=== PATIENT | male | born 1950 | race Caucasian/White ===

== ENCOUNTER 2018-07-03 13:37 | Emergency (ER) | payer OTHER ==
[~2018-07-03] VITALS: Ht 177.8 cm; Wt 77.1 kg
[~2018-07-03 13:37] MED LIST: CENTRUM SILVER1 EAC4 PO; DILANTIN100 MG PO; FISH OIL 1,001000 M2 PO; LORATIDINE 10 M10 M1 PO; VITAMIN E100 UNIT PO; VITAMINC500 PO; ZYRTEC10 M5 PO
[2018-07-03 14:43] LABS: URINE BILIRUBIN 3+ (Negative); URINE BLOOD TRACE (Negative); URINE CLARITY CLEAR; URINE COLOR YELLOW; URINE GLUCOSE-RANDOM* TRACE (Negative); URINE KETONES 1+ (Negative); URINE LEUKOCYTES-REFLEX NEGATIVE (Negative); URINE PROTEIN (DIPSTICK) 2+ (Negative); URINE UROBILINOGEN >= 8.0 E.U./dl (0.2-1.0)
[2018-07-03 14:45] LABS: HEMATOCRIT 35.2 % (42.0-52.0); HEMOGLOBIN 12.2 gm/dL (14.0-18.0); MCH 35.9 pg (26.0-34.0); MCHC 34.6 g/dL (28.0-37.0); MCV 103.8 fL (80.0-100.0); PLATELET COUNT 117 thou/uL (150-400); RBC 3.39 mil/uL (4.50-6.00); RDW 13.9 % (10.5-14.5); WBC 8.1 thou/uL (4.0-11.0)
[2018-07-03 14:46] LABS: ICTOTEST (BILI CONFIRMATORY) Positive (Negative); URINE NITRITE-REFLEX POSITIVE (Negative)
[2018-07-03 14:52] LABS: BACTERIA-REFLEX 1-9 Few /HPF (None Seen); CRYSTALS None Seen /LPF (None Seen); HYALINE CASTS 0-3 Few /LPF (None Seen); MUCUS >6 Heavy strn/LPF (None Seen); SQUAMOUS 0-3 Few /LPF (0-3); URINE RBC None Seen /HPF (0-2); URINE WBC-REFLEX 0-5 Rare /HPF (0-5)
[2018-07-03 14:52] LABS: CALCIUM 8.5 mg/dL (8.5-10.1); CREATININE 0.6 mg/dL (0.7-1.3); POTASSIUM 3.4 mmol/L (3.5-5.1)
[2018-07-03 15:36] LABS: ABSOLUTE NEUTROPHILS 5.3 thou/uL (1.4-8.2); ANISOCYTOSIS 1+; MACROCYTES 1+
[2018-07-03 16:21] LABS: DIRECT BILIRUBIN 2.7 mg/dL (<0.1-0.3); TOTAL PROTEIN 7.6 g/dL (6.4-8.2)
[2018-07-03] MEDS ORDERED: NORFLEX100 MG PO (16:42)
[2018-07-03] MEDS ORDERED: IBUPROFEN 600600 M1 PO (16:42)
[2018-07-03 16:58] VITALS: BP 145/92
== END 2018-07-03 16:59 | disposition home or self-care (01) ==
LOC: ER 13:37
PROVIDERS: Nurse Practitioner Family
DX: N39.0 Urinary tract infection, site not specified (principal); E87.1 Hypo-osmolality and hyponatremia; R60.0 Localized edema; F10.10 Alcohol abuse, uncomplicated; Y90.6 Blood alcohol level of 120-199 mg/100 ml; E80.7 Disorder of bilirubin metabolism, unspecified; R94.5 Abnormal results of liver function studies; F17.210 Nicotine dependence, cigarettes, uncomplicated; Z85.828 Personal history of other malignant neoplasm of skin

== ENCOUNTER 2018-07-06 19:01 | Inpatient (IN) | payer OTHER ==
[~2018-07-06] VITALS: Ht 177.8 cm; Wt 75.9 kg
[~2018-07-06 19:01] MED LIST changes: +IBUPROFEN 600600 M1 PO; +NORFLEX100 MG PO
[2018-07-06 19:03] VITALS: BP 135/86
[2018-07-06 20:09] LABS: ABSOLUTE NEUTROPHILS 5.1 thou/uL (1.4-8.2); BASOPHILS 1.5 % (0.0-2.0); EOSINOPHILS 1.5 % (0.0-3.0); HEMOGLOBIN 12.6 gm/dL (14.0-18.0); MCH 36.4 pg (26.0-34.0); MCHC 35.2 g/dL (28.0-37.0); MCV 103.5 fL (80.0-100.0); MONOCYTES 11.2 % (1.0-8.0); PLATELET COUNT 119 thou/uL (150-400); POLYS 65.8 % (36.0-66.0); RBC 3.47 mil/uL (4.50-6.00); WBC 7.8 thou/uL (4.0-11.0)
[2018-07-06 20:18] LABS: ANION GAP 11 mmol/L (7-16); BUN 6 mg/dL (7-18); CALCIUM 8.4 mg/dL (8.5-10.1); CHLORIDE 95 mmol/L (98-107); CO2 26 mmol/L (21-32); CREATININE 0.5 mg/dL (0.7-1.3); GLUCOSE 82 mg/dL (74-106); POTASSIUM 4.6 mmol/L (3.5-5.1); SODIUM 132 mmol/L (136-145)
[2018-07-06 20:23] LABS: APTT 32.4 Seconds (24.5-32.8); INR 1.2; PROTIME 12.6 Seconds (9.3-11.4)
[2018-07-06 20:28] LABS: ALBUMIN 2.9 g/dL (3.4-5.0); DIRECT BILIRUBIN 1.4 mg/dL (<0.1-0.3); SGOT 142 U/L (15-37); SGPT 31 U/L (30-65); TOTAL BILIRUBIN 2.7 mg/dL (<0.1-1.0); TOTAL PROTEIN 7.4 g/dL (6.4-8.2); TROPONIN-I <0.06 ng/mL (<0.06)
[2018-07-06 21:26] LABS: URINE BILIRUBIN NEGATIVE (Negative); URINE BLOOD NEGATIVE (Negative); URINE CLARITY CLEAR; URINE COLOR YELLOW; URINE GLUCOSE-RANDOM* NEGATIVE (Negative); URINE KETONES NEGATIVE (Negative); URINE LEUKOCYTES-REFLEX TRACE (Negative); URINE NITRITE-REFLEX NEGATIVE (Negative); URINE PROTEIN (DIPSTICK) NEGATIVE (Negative); URINE SPECIFIC GRAVITY <= 1.005 (1.005-1.035); URINE UROBILINOGEN >= 8.0 E.U./dl (0.2-1.0)
[2018-07-06 23:22] VITALS: BP 144/87
[2018-07-06 23:24] VITALS: BP 130/85; BP 135/81
[2018-07-06 23:51] LABS: AMP/METHAMP Negative (Negative); BARBITURATES Negative (Negative); BENZODIAZEPINES Negative (Negative); COCAINE Negative (Negative); METHADONE Negative (Negative); OPIATES Negative (Negative); PCP Negative (Negative)
[2018-07-07 00:15] VITALS: BP 139/80
[2018-07-07 01:11] LABS: GGTP > 800 U/L (15-85)
[2018-07-07 01:12] LABS: MAGNESIUM 0.9 mg/dL (1.8-2.4)
[2018-07-07 01:38] LABS: FOLIC ACID 31.5 ng/mL (8.6-58.9)
[2018-07-07 04:00] VITALS: BP 130/80
[2018-07-07 07:31] VITALS: BP 131/79
[2018-07-07] MEDS ORDERED: VITAMIN B-1100 M2 PO (09:02)
[2018-07-07] MEDS ORDERED: DILANTIN100 MG PO (09:02)
[2018-07-07] MEDS ORDERED: PRENATAL PO (09:03)
[2018-07-07] MEDS ORDERED: PROPRANOLOL 1010 MG PO (09:09)
--- NOTE | 2018-07-07 09:32 | EKG ---
[address] [place] [address] ELECTROCARDIOGRAM REPORT Name: LYLA HARLEY Claire Room #: 358-P ADM IN M.R.#: [id number] ������������������ Admission: 07/06/18 ������������������ Attend Phys: Deborah Roberts Discharge: ������������������ Date of : 50 Report #: [id number] ����������������������������������������������������������������� [id number] THIS REPORT FOR: //name// [facility] ED Test Date: 2018-07-06 Test Time: 19:27:51 Pat Name: LYLA HARLEY Department: Room: [facility] Gender: M Tanning Solution Maker: JARET : 1950 Requested By: Shiva Barnes Order Number: [id number] MD: Samm Monsalve Measurements Intervals [place] Rate: 92 P: 28 HI: 172 QRS: -8 QRSD: 104 T: 35 QT: 428 QTc: 530 Interpretive Statements Sinus rhythm RSR' in V1 or V2, probably normal variant Prolonged QT interval Compared to ECG 10/14/2017 06:20:57 RSR' in V1 or V2 now present Electronically Signed On 07-07-2018 9:32:02 CDT by Samm Monsalve [email or web address] ��������������������������������������������� <ELECTRONICALLY SIGNED> ���������������������������������������� By: Samm Monsalve MD, [facility] ��������������������������������������������� 07/07/18 0932 1927 26 Samm Monsalve MD, [facility] /EPI
[2018-07-07 10:18] LABS: % SATURATION 62 % (20-39); IRON 98 ug/dL (65-175); TIBC 157 ug/dL (250-450)
[2018-07-07 11:59] VITALS: BP 131/79
[2018-07-07 16:00] VITALS: BP 139/76
[2018-07-07 19:10] VITALS: BP 155/91
[2018-07-07 21:10] LABS: HAV IgM AB (ANTI-HAV IgM) Negative (Negative); HEPATITIS B SURFACE AG Negative (Negative); HEPATITIS C VIRUS AB <0.1 (0.0-0.9)
[2018-07-07 22:06] LABS: IgG 1215 mg/dL (700-1600)
[2018-07-08 03:15] VITALS: BP 145/101
[2018-07-08 06:29] LABS: ALBUMIN 2.7 g/dL (3.4-5.0); CALCIUM 8.2 mg/dL (8.5-10.1); CREATININE 0.5 mg/dL (0.7-1.3); MAGNESIUM 1.2 mg/dL (1.8-2.4); POTASSIUM 3.2 mmol/L (3.5-5.1); TOTAL PROTEIN 6.5 g/dL (6.4-8.2)
[2018-07-08 07:47] VITALS: BP 143/96
[2018-07-08 11:03] VITALS: BP 143/86
[2018-07-08 16:46] VITALS: BP 127/84
[2018-07-08 19:49] VITALS: BP 141/91
[2018-07-09 03:45] VITALS: BP 135/81
[2018-07-09 07:27] VITALS: BP 126/80
[2018-07-09 10:10] LABS: CERULOPLASMIN 30.2 mg/dL (16.0-31.0)
[2018-07-09 10:39] LABS: MAGNESIUM 1.3 mg/dL (1.8-2.4); POTASSIUM 3.5 mmol/L (3.5-5.1)
[2018-07-09 11:00] VITALS: BP 133/85
[2018-07-09 15:34] VITALS: BP 131/83
[2018-07-09 20:00] VITALS: BP 139/87
[2018-07-10 04:00] VITALS: BP 118/74
[2018-07-10 07:13] LABS: ALBUMIN 2.4 g/dL (3.4-5.0); CALCIUM 7.9 mg/dL (8.5-10.1); CREATININE 0.5 mg/dL (0.7-1.3); POTASSIUM 3.8 mmol/L (3.5-5.1); TOTAL BILIRUBIN 3.1 mg/dL (<0.1-1.0)
[2018-07-10 07:25] VITALS: BP 124/74
[2018-07-10 07:30] VITALS: BP 124/74
[2018-07-10 11:30] VITALS: BP 135/77
[2018-07-10 16:00] LABS: CLARITY HAZY; COLOR YELLOW; SOURCE ABDOMINAL; TOTAL VOLUME 60 mL
[2018-07-10 16:14] LABS: BF NUCLEATED CELLS 211; BF RBC 1268
[2018-07-10 17:11] LABS: BF MACROPHAGE 20; BF NEUTROPHILS 32
[2018-07-10 20:16] VITALS: BP 115/73
[2018-07-11 00:10] LABS: ANA INTERPRETATION Negative (Negative)
[2018-07-11 03:50] VITALS: BP 122/70
[2018-07-11 05:44] LABS: INR 1.3
[2018-07-11 07:37] VITALS: BP 118/65
[2018-07-11 08:23] LABS: HEMATOCRIT 37.1 % (42.0-52.0); HEMOGLOBIN 12.8 gm/dL (14.0-18.0); MCH 36.9 pg (26.0-34.0); MCHC 34.5 g/dL (28.0-37.0); MCV 106.8 fL (80.0-100.0); RBC 3.47 mil/uL (4.50-6.00); RDW 14.4 % (10.5-14.5); WBC 7.6 thou/uL (4.0-11.0)
[2018-07-11 11:37] VITALS: BP 105/71
[2018-07-11 12:12] VITALS: BP 128/78
[2018-07-11 13:06] LABS: BODY FLUID ALBUMIN 1.8 g/dL (()); BODY FLUID AMYLASE 22 U/L (()); BODY FLUID GLUCOSE 101 mg/dL (()); BODY FLUID LDH 64 IU/L (()); BODY FLUID PROTEIN 2.2 g/dL (())
[2018-07-11 15:43] VITALS: BP 131/80
[2018-07-11 19:30] VITALS: BP 119/77
[2018-07-12 05:26] VITALS: BP 112/73
[2018-07-12 06:36] LABS: ALBUMIN 2.3 g/dL (3.4-5.0); CALCIUM 8.1 mg/dL (8.5-10.1); CREATININE 0.7 mg/dL (0.7-1.3); TOTAL BILIRUBIN 2.6 mg/dL (<0.1-1.0); TOTAL PROTEIN 5.8 g/dL (6.4-8.2)
[2018-07-12 07:53] VITALS: BP 105/61
[2018-07-12 08:22] LABS: SOURCE ABDOMINAL
[2018-07-12] MEDS ORDERED: LACTULOSE20 GM/30 M PO (10:04)
[2018-07-12] MEDS ORDERED: VITAMIN B-1100 M2 PO (10:04)
[2018-07-12] MEDS ORDERED: XIFAXAN550 MG PO (10:04)
[2018-07-12] MEDS ORDERED: CHLORDIAZEPOXID25 M1 PO (10:04)
[2018-07-12] MEDS ORDERED: DILANTIN100 MG PO (10:04)
[2018-07-12] MEDS ORDERED: ALDACTONE50 MG PO (10:04)
[2018-07-12 11:26] VITALS: BP 112/60
[2018-07-12 16:11] VITALS: BP 118/77
--- NOTE | 2018-07-12 17:06 | PATH ---
[facility] [address] [place] [address] PATHOLOGY RPT PROCEDURE Name: PAUL HARLEY Claire Room #: 358-P [facility] IN M.R.#: [id number] ������������������ Admission: 07/06/18 ������������������ Date of : 50 Discharge: Report #: [id number] Path Case #: [id number] [facility] Accession Number: [id number] . 01 Material submitted: . PART A: colon - POLYP AT DESCENDING COLON. Modifiers: descending PART B: colon - POLYP AT SIGMOID COLON X2. Modifiers: sigmoid . 01 Clinical history: . Cirrhosis Liver . 02 Diagnosis: A. Polyp, descending colon, endoscopic biopsy: - Tubulovilous adenoma. - Negative for high-grade dysplasia. - Cautery present in association with unremarkable mucosa and adenomatous changes (please see comment). . B. Polyp x2, sigmoid colon, endoscopic biopsy: - Tubular adenoma. - Negative for high-grade dysplasia. - Unremarkable mucosa present at cautery. (IUV:[place]; 07/12/2018) QMS/07/12/2018 . 02 Comment: A. Please correlate with endoscopic findings for a complete resection of this polyp. . (IUV:[place]; 07/12/2018) . 02 Electronically signed: . Kamala Santiago MD, Pathologist NPI- [id number] . 01 Gross description: . A. Received in formalin labeled "Paul Harley, polyp at descending colon," is a 0.9 x 0.7 x 0.7 cm polypoid piece of shaffer soft tissue. The margin is inked and the tissue is sectioned perpendicular to the margin and submitted in its entirely in cassette A1 and A2. Additionally received in the same container is a 1.0 x 0.5 x 0.5 cm polypoid piece of shaffer soft tissue. The margin is inked and the specimen is sectioned perpendicular to the margin and entirely submitted in cassette A3 and A4. . B. Received in formalin labeled "Paul Harley, polyp at sigmoid colon x2," are 3 segments of shaffer soft tissue measuring 0.9 x 0.7 x 0.2 cm in aggregate dimensions and ranging from 0.4 to 0.5 [place] [address] PATHOLOGY RPT PROCEDURE Name: PAUL HARLEY A Room #: 358-P [facility] IN M.R.#: [id number] ������������������ Admission: 07/06/18 ������������������ Date of : 50 Discharge: Report #: [id number] Path Case #: [id number] The specimen is submitted entirely in cassette B1. (TSD; 07/11/2018) TOB/TOB . 02 Pathologist provided ICD-10: D12.4, D12.5 . 02 CPT . 820282, 685411 Specimen Comment: A courtesy copy of this report has been sent to Specimen Comment: [phone], , . Specimen Comment: Report sent to ,DR JONES / DR BUTT Performed at: [address], [place], [place] [id number] MD Harvey Boyce MD Phone: [phone] Performed at: [address] [id number] MD Kamala Santiago MD Phone: [phone]
[2018-07-12 19:02] VITALS: BP 119/65
--- NOTE | 2018-07-13 14:06 | PATH ---
[facility] [address] [place] [address] PATHOLOGY RPT PROCEDURE Name: LYLA HARLEY Room #: 358-P [facility] IN M.R.#: [id number] ������������������ Admission: 07/06/18 ������������������ Date of : 50 Discharge: 07/12/18 Report #: [id number] Path Case #: [id number] Note [facility] Accession Number: [id number] TESTS RESULT FLAG UNITS REF RANGE LAB Clinician Provided Cytology Information No. of containers..01 Other (Miscellaneous) Source: ABDOMINAL FLUID DIAGNOSIS: 02 ABDOMINAL FLUID NEGATIVE FOR MALIGNANT CELLS. REACTIVE CELLULAR CHANGES NOTED. Pathologist ICD10: 02 R79.9 Signed out by: Kamala Santiago MD, Pathologist NPI- [id number] Performed by: Chika Hough, Cigar Machine Feeder ([facility]) Gross description: 01 20ML, YELLOW, CLEAR /LCS FLAG LEGEND: L-Low Normal,H-High Normal,LL-Alert Low,HH-Alert High <-Panic Low,>-Panic High,A-Abnormal,AA-Critical Abnormal Performed at: [address] [place] [address] Harvey Boyce MD, [address] [address] Kamala Santiago MD, Specimen Comment: A courtesy copy of this report has been sent to Specimen Comment: [phone], , . Specimen Comment: Report sent to ,DR BUTT / DR JONES Performed at: [address], [place], [place] [id number] MD Harvey Boyce MD Phone: [phone]
--- NOTE | 2018-07-14 14:06 | PATH ---
[facility] [address] [place] [address] PATHOLOGY RPT PROCEDURE Name: LYLA HARLEY Room #: 358-P [facility] IN M..#: [id number] ������������������ Admission: 07/06/18 ������������������ Date of : 50 Discharge: 07/12/18 Report #: [id number] Path Case #: [id number] Note [facility] Accession Number: [id number] TESTS RESULT FLAG UNITS REF RANGE LAB Clinician Provided Cytology Information No. of containers..01 Other (Miscellaneous) Source: BRUSHING DIAGNOSIS: 02 CYTOLOGY BRUSHING TO RULE OUT KANDIS NEGATIVE FOR MALIGNANT CELLS. NO FUNGAL ORGANISMS ARE PRESENT. Pathologist ICD10: 02 E72.20 Signed out by: 02 Kamala Santiago MD, Pathologist NPI- [id number] Performed by: 01 Chika Hough Pressing Machine Tender ([facility]) FLAG LEGEND: L-Low Normal,H-High Normal,LL-Alert Low,HH-Alert High <-Panic Low,>-Panic High,A-Abnormal,AA-Critical Abnormal Performed at: [address] [place] [address] Harvey Boyce MD, [address] [address] Kamala Santiago MD, Specimen Comment: A courtesy copy of this report has been sent to Specimen Comment: [phone]. Specimen Comment: Report sent to ROBERT TEAGUE / DR BUTT Specimen Comment: Report sent to Specimen Comment: A duplicate report has been generated due to demographic updates. Performed at: [address], [place], [place] [id number] MD Harvey Boyce MD Phone: [phone]
== END 2018-07-12 22:35 | DRG 433 ==
LOC: ER 19:01 → EROBS 21:15 → 3W 21:15
PROVIDERS: Anesthesiology; Emergency Medicine; Internal Medicine Gastroenterology; Nurse Practitioner; Nurse Practitioner Acute Care; ADMIT Hospitalist
DX: K70.31 Alcoholic cirrhosis of liver with ascites (principal); K76.6 Portal hypertension; F10.239 Alcohol dependence with withdrawal, unspecified; E46 Unspecified protein-calorie malnutrition; I85.00 Esophageal varices without bleeding; K70.11 Alcoholic hepatitis with ascites; G31.9 Degenerative disease of nervous system, unspecified; E83.42 Hypomagnesemia; G40.909 Epilepsy, unspecified, not intractable, without status epilepticus; G72.9 Myopathy, unspecified; Y90.9 Presence of alcohol in blood, level not specified; K31.89 Other diseases of stomach and duodenum; Z68.24 Body mass index [BMI] 24.0-24.9, adult; Z87.891 Personal history of nicotine dependence; Z82.49 Family history of ischemic heart disease and other diseases of the circulatory system; Z85.828 Personal history of other malignant neoplasm of skin
CPT/HCPCS: 10879; 62110; 62900; 70005

== ENCOUNTER 2018-07-12 16:07 | Inpatient (IN) | payer OTHER ==
[~2018-07-12] VITALS: Ht 177.8 cm; Wt 73.9 kg
[~2018-07-12 16:07] MED LIST changes: +ALDACTONE50 MG PO; +CHLORDIAZEPOXID25 M1 PO; +LACTULOSE20 GM/30 M PO; +PRENATAL PO; +PROPRANOLOL 1010 MG PO; +VITAMIN B-1100 M2 PO; +XIFAXAN550 MG PO
[2018-07-12 22:35] VITALS: BP 137/87
--- NOTE | 2018-07-13 01:15 | NUR ---
PT ADMITTED TO THE [address] [place] [address] LATE THIS EVENING FOR SEVERE PROXIMAL MYOPATHY AND ACUTE ALCOHOLIC ENCEPHALOPATHY. VSS. SAT WNL ON RA. ADMIT HX AND ASSESSMENT COMPLETED. PT CONFUSED SO DID NOT HAVE HIM SIGN CONSENTS. INC OF DARK YELLOW URINE. VERY WEAK. 2 ASST WITH STANDING. TURNS SELF WELL IN THE BED. IMPULSIVE. ASCITES. SLEEPING ON AND OFF. WILL CONTINUE TO MONITOR FREQUENTLY.
[2018-07-13 05:28] LABS: HEMATOCRIT 38.6 % (42.0-52.0); HEMOGLOBIN 13.2 gm/dL (14.0-18.0); MCH 36.2 pg (26.0-34.0); MCHC 34.3 g/dL (28.0-37.0); MCV 105.4 fL (80.0-100.0); RBC 3.66 mil/uL (4.50-6.00); RDW 14.3 % (10.5-14.5); WBC 7.1 thou/uL (4.0-11.0)
[2018-07-13 05:40] LABS: CALCIUM 8.7 mg/dL (8.5-10.1); CREATININE 0.7 mg/dL (0.7-1.3); POTASSIUM 3.8 mmol/L (3.5-5.1)
[2018-07-13 09:09] VITALS: BP 102/70
--- NOTE | 2018-07-13 12:20 | NUR ---
chart review. pt up getting ready for lunch, sitting with him for lunch. intro to cm, dcp and team meeting. per chart pt lives with - employee with [employer]. pt independent, hx ethol abuse. resources provided in past for [facility]. no dme. had [facility] in past per chart. will cont following as needed for dc needs.
--- NOTE | 2018-07-13 13:28 | NUR ---
Nutrition: Pt admitted to rehab unit with severe proximal myopathy. Consulted due to ascities, ETOH. Hx cirrhosis, portal HTN, varices. Spoke with pt and . Per , he eats very well, 100% of breakfast consumed. Prior stable weights from 10/2017. Most recent weight down 4# possibly due to recent paracentesis. Follow trends. Obtained food preferences. Trial ensure enlive daily for additional protein/nutrition. On , thiamine supplementation and lactulose for elevated NH3 levels. Consider pt low risk at present.
--- NOTE | 2018-07-13 14:59 | NUR ---
ASSUMED CARES AT 0700. PT ORIENTED TO PERSON AND SITUATION SOMETIMES, CONFUSED AND VERY IMPULSIVE. PT SITTING ON THE RECLINER BETWEEN THERAPIES AND TRIED TO GET UP MULTIPLE TIMES, REORIENTED EACH TIME BUT QUICKLY FORGETS. VITALS REMAIN STABLE. PT REMAINS ON SEIZURE PRECAUTIONS. ABDOMEN SOFT AND DISTENDED, BS ACTIVE*4, LAST BM 07/11. DRESSING ON RIGHT UPPER ABDOMEN REMAINS INTACT AND DRY. PT CONTINUES TO HAVE BLE EDEMA. FREQUENT VISUAL CHECKS, ROOM BY NURSES' STATION. FALL PRECAUTIONS IN PLACE
[2018-07-13 20:04] VITALS: BP 125/69
--- NOTE | 2018-07-14 01:35 | NUR ---
PT ALERT AND CONFUSED. RESTLESS AT TIMES. INCONT OF URINE. DRESSING TO RIGHT ABDOMEN C/D/I. PT DENIES PAIN OR DISCOMFORT. BED ALARM ON FOR SAFETY. PT APPEARS TO BE SLEEPING ON HOURLY ROUNDS. PT EASILY VISIBLE FROM NURSES STATION.
[2018-07-14 06:43] LABS: ALBUMIN 2.5 g/dL (3.4-5.0); CALCIUM 8.9 mg/dL (8.5-10.1); CREATININE 0.6 mg/dL (0.7-1.3); POTASSIUM 3.8 mmol/L (3.5-5.1); TOTAL BILIRUBIN 2.9 mg/dL (<0.1-1.0); TOTAL PROTEIN 6.8 g/dL (6.4-8.2)
[2018-07-14 08:15] VITALS: BP 100/70
[2018-07-14 20:06] VITALS: BP 95/57
--- NOTE | 2018-07-14 20:17 | NUR ---
ASSUMED CARE OF PT AT 0715. PT IS ALERT AND ORIENTED TO PERSON, AND HAS PERIODS OF AGITAITON AND IMULSIVITY. BLOOD PRESSURE LOW, PT ASYMPTOMATIC AND WHEN RECHECKED LATER IN SHIFT HAD ELEVATED. PT IS INCONTINENT OF BOWEL AND BLADDER. PT TAKES MEDICAITONS 1 AT A TIME WITH THIN LIQUIDS. PT TRANSFERS AND AMBULATES WITH 1-2 PERSON MAX ASSIST TO W/C. PT REPORTED NO PAIN AND PARTICIPATED IN THERAPIES. BOWEL SOUNDS ARE ACTIVE IN ALL QUADRANTS WITH SOME DISTENTION NOTED IN THE LOWER QUADRANTS. FALL AND SEIZURE PRECAUTIONS IN PLACE AND NURSING WILL CONTINUE TO MONITOR.
[2018-07-14 22:30] VITALS: BP 119/63
--- NOTE | 2018-07-15 01:15 | NUR ---
PT ASSESSMENT COMPLETED AND VSS. MEDS GIVEN ORDERED AND WELL TOLERATED. FALL PRECAUTIONS IN PLACE. PT REMAINS VERY CONFUSED. PT AGITATED WHEN TRYING TO REPOSITION HIM. PROVIDED MUCH EMOTIONAL SUPPORT. INC OF URINE. SEIZURE PRECAUTIONS PADS IN PLACE. 0 SEIZURES NOTED. SLEEPING WELL. WILL CONTINUE TO MONITOR FREQUENTLY.
[2018-07-15 09:30] VITALS: BP 111/67
--- NOTE | 2018-07-15 12:31 | NUR ---
ASSUMED CARES AT 0700. PT IN BED ASLEEP. ORIENTED TO PERSON ONLY, CONFUSED AND IMPULSIVE. VITALS REMAIN STABLE. AMMONIUM LAB DRAWN -35, HOSPITALIST NOTIFIED. ABDOMEN FIRM AND DISTENDED, LAST BM 07/11, DUCOLAX SUPP ADMINISTERED AND PT HAD 1LG BM. ABDOMEN REMAINS DISTENDED, BLE EDEMA. PT REMAINS ON ANTI-SEIZURE PRECAUTIONS. UP WITH 2 MAX ASSIST TRANSFERS, AMBULATED SHORT DISTANCES WITH PT THIS AM AND TOLERATED WELL. Q1H VISUAL CHECKS. CALL LIGHT WITHIN REACH. FALL PRECAUTIONS IN PLACE
[2018-07-15 21:00] VITALS: BP 130/77
--- NOTE | 2018-07-16 05:11 | NUR ---
assumed care at approx 1900 evening 07/15. pt lying in bed at change of shift sleeping. pads in place in bed for seizure precautions. pt woke for hs meds and took with water well. pt incontinent of urine requiring assistance with changing brief. pt confused and forgetful needing redirectin at times. pt now back to sleep appears to be sleeping soundly. bed alarm on and call light in reach. will continue to monitor.
[2018-07-16 07:50] VITALS: BP 117/66
--- NOTE | 2018-07-16 12:30 | NUR ---
ASSUMED CARE OF PT AT 0715. PT IS ALERT AND ORIENTED TO PERSON AND PLACE, VITAL SIGNS ARE STABLE. PT DENIES PAIN AND PARTICIPATED WITH SCHEDULED THERAPIES. PT TAKES MEDICAITONS WHOLE WITH THIN LIQUIDS. TRANSFERS WITH 1 PERSON ASSISTANCE WITH GAIT BELT AND WALKER TO PIVOT TO W/C. SEIZURE PRECAUTIONS IN PLACE FOR HX OF SEIZURES. FALL PRECAUTIONS IN PLACE AND NURSING WILL CONTINUE TO MONITOR.
[2018-07-16 19:30] VITALS: BP 117/62
[2018-07-16 20:15] VITALS: BP 114/72
[2018-07-16 20:16] VITALS: BP 114/72
--- NOTE | 2018-07-16 22:48 | NUR ---
AT 1919 CHAIR ALARM GOING OFF FROM PT'S ROOM. MACHINE CLOTH EXAMINER JIMBO RESPONDED AND FOUND PT ON HIS KNEES IN FRONT OF HIS RECLINER. PT CONFUSED. DENIES PAIN OR DISCOMFORT. NO APPARENT INJURY. KYE, GLYCERIN SUPERVISOR NOTIFIED AT 1926. Jay Jay FELDER NP NOTIFIED AT 1936. DR PEÑALOZA NOTIFIED AT 1940 WITH ORDERS RECEIVED. PT'S LEA NOTIFIED AT 1958. PT ASSISTED TO W/C AND THEN TO BED AFTER FALL WITH 3 PERSON ASSIST. ASSESSMENT COMPLETED. LEFT EYE PUPIL LARGER THAN RIGHT. BOTH RESPOND BRISKLY TO LIGHT. HEPATOLOGIST EQUAL. CT HEAD DONE AT 1999 PER ORDERS. PT NOW RESTING IN BED. BED ALARM ON FOR SAFETY. PT CHECKED ON MORE FREQUENTLY THAN HOURLY ROUNDS. Q2H NEURO CHECKS ORDERED.
[2018-07-17 07:45] VITALS: BP 102/57
[2018-07-17 20:01] VITALS: BP 113/73
--- NOTE | 2018-07-17 20:17 | NUR ---
ASSUMED CARE OF PT AT 0715. PT IS A&OX2-3 WITH PERIODS OF CONFUSION, DISORIENTATION, AND IMPULSIVITY, VITAL SIGNS ARE STABLE. PT MADE NO REPORTS OF PAIN AND PARTICIPATED IN SCHEDULED THERAPIES. PT TAKES MEDICATIONS WHOLE WITH THIN LIQUIDS. TRANSFERS WITH 1 PERSON MOD ASSISTANCE TO W/C WITH WALKER AND GAIT BELT. AT APPROXIMATELY 1600 PT BEGAN TO BECOME INCREASINGLY CONFUSED AND REPORTED THAT HE WAS IN HIS HOME AND THAT HIS WAS NOT SUPPOSED TO LEAVE THE HOUSE WITHOUT TELLING HIM BECAUSE SHE NEEDED TO GIVE HIM HIS MEDICAITONS AT THAT MOMENT. CAME TO UNIT FOLLOWING DINNER AND PT INSISTED THAT HE NEEDED TO GO HOME WITH HER BECAUSE THE "DOCTOR'S OFFICE (UNIT)" WAS CLOSING AND THAT SHE NEEDED TO TAKE "THOSE 14 LITTLE WHITE PILLS". PT CONTINUED TO BECOME AGITATED AND REQUIRING FREQUENT REORIENTATION AND REDIRECTION TO AVOID ATTEMPTS TO GET OUT OF W/C AFTER LEFT UNIT AT APPROXIMATELY 1630. AIDE ASKED TO SIT WITH PT UNTIL HE WAS WILLING TO GET INTO BED HE HAD REFUSED TO GET INTO BED EARLIER BECAUES HE SAID IT WAS TOO EARLY. PT IS ON SEIZURE PRECAUTIONS DUE TO HX OF SEIZURE. FALL PRECAUTIONS IN PLACE AND NURSING WILL CONTINUE TO MONITOR.
--- NOTE | 2018-07-18 02:19 | NUR ---
assumed care at approx 1900 evening 07/17. pt sitting up in recliner at change of shift. pt stating he wants to go home and leave. pt able to be redirected however pt remained impulsive. sitter at bedside assisting with pt not trying to get up. pt max assist up to w/c and into bathroom to void. pt did take all of his hs meds with no problem. pt appears to be sleeping soundly with sitter at bedside. fall precautions in place. will continue to monitor.
[2018-07-18 05:52] VITALS: BP 108/64
[2018-07-18 06:15] LABS: INR 1.4; PROTIME 14.5 Seconds (9.3-11.4)
[2018-07-18 06:18] LABS: ALBUMIN 2.4 g/dL (3.4-5.0); CALCIUM 8.6 mg/dL (8.5-10.1); CREATININE 0.6 mg/dL (0.7-1.3); TOTAL BILIRUBIN 2.5 mg/dL (<0.1-1.0); TOTAL PROTEIN 6.9 g/dL (6.4-8.2)
--- NOTE | 2018-07-18 06:24 | HC ---
[facility] [place] [address] CONSULTATION Name: LYLA HARLEY Room #: 513-P ADM IN M.R.#: [id number] Admission: 07/12/18 ������������������ Attend Phys: Hudson Alcaraz MD Discharge: ������������������ Date of : 50 Report #: [id number] THIS REPORT FOR: //name// CC: Hudson Bai DATE OF SERVICE: 07/16/2018 NEUROBEHAVIORAL STATUS EXAMINATION ATTENDING PHYSICIAN: Hudson Alcaraz MD. CERTIFIED CONTROL SYSTEMS TECHNICIAN: Juan Peters, PhD CLINICAL PRESENTATION: The patient is a 67-year-old male admitted to the rehabilitation unit for comprehensive inpatient rehabilitation program. He was initially admitted to the hospital on 07/06/2018 with weakness of the upper and lower extremities, recent fall and trouble with balance. He has history that includes a grand mal seizure approximately 1 week prior to this recent hospitalization. Additionally, his history includes severe alcohol abuse. Abdominal ultrasound revealed cirrhosis with ascites and paracentesis on admission. During his initial hospitalization he underwent severe alcohol withdrawal that included delirium tremens. 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 A complete description of his medical condition and history can be found in his medical records. Neuropsychological consultation was requested to provide assistance in the assessment of cognitive and emotional status and to provide recommendations and services. Prior to this most recent hospitalization, he was living with the assistance of his in their home. The patient is the oldest of 5 siblings. This is his third marriage. He has two children, of whom he is estranged. The patient is a high school graduate. 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 He has not worked for the past 2 years. 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 Additionally, she states that his behavior has deteriorated considerably with an increase in alcohol use and decreased activity. She stated that he had discontinued his seizure medicine during this 2-year period of deterioration since he lost his job. [facility] [address] [place] [address] CONSULTATION Name: LYLA HARLEY Room #: 513-P [facility] IN .R.#: [id number] Admission: 07/12/18 ������������������ Attend Phys: Hudson Alcaraz MD Discharge: ������������������ Date of : 50 Report #: [id number] TECHNIQUES UTILIZED: Clinical interview, review of medical records, staff consultation and behavioral observation, mini mental status exam 2 standard version, clock drawing, verbal fluency assessment (letter and category) and family interview -- . EXAMINATION FINDINGS: The patient was cooperative with the assessment. He was alert, but had diminished social pragmatics. For instance, he maintained a phone conversation upon my entering the room and needing direction in order to end the phone call. He was not able to indicate the reason for his hospitalization. Although he states that he has had trouble with walking and balance and had multiple falls. He acknowledges daily alcohol use, but minimizes the extent of his consumption. His reports him drinking approximately half a bottle of vodka on a daily basis. He reports having 3-4 glasses of vodka daily. He does not report auditory or visual hallucinations and denies feelings of depression or anxiety. However, he reports frustration being in the hospital and wanting to go home. He is lacking insight into the severity of his deficits and does not report problems with cognition, sleep or appetite. His stated that she is not wanting him to return home in his current state. His reports a decline in cognition that has about a 3-4 year duration. 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 His is frustrated with the extent of his personal neglect and alcohol abuse. His performance on the MMSE 2 brief version is extremely low with a raw score of 10 and the T score of 12 and percentile rank of less than 1. He was 3/3 for initial registration, 4/5 for orientation to time, 2/[address] and 1/3 for immediate recall of 3 items after a brief time delay and distraction. His performance on the MMSE 2 standard version was extremely low with a raw score of 18, T score of 14, percentile rank of less than 1. He was 1/5 for serial sevens, 2/2 for naming, 1/1 for repetition, 3/3 for auditory comprehension. He could read and follow single command. The patient was unable to write a sentence or accurately copy a simple geometric design. The patient was unable to draw a clock, correctly place the numbers or set the hands at a specific time. Letter fluency was extremely low with a raw score of 9, T score of 24 and percentile rank of less than 1. Category fluency was extremely low with a raw score of 22, T score 28 and percentile rank of 1. Overall, total fluency was extremely low with a raw score of 31, T score of 20, percentile rank of less [facility] [address] [place] [address] CONSULTATION Name: LYLA HARLEY Room #: 513-P [facility] IN [facility].#: [id number] Admission: 07/12/18 ������������������ Attend Phys: Hudson Alcaraz MD Discharge: ������������������ Date of : 50 Report #: [id number] than 1. The patient is presenting with a severe impairment in cognitive status at this time. Variability in neurocognitive functioning may be subsequent to continued recovery from delirium tremens with intermittent delirium. Deficits are with immediate memory, attention/concentration, visual spatial construction and executive functioning. DIAGNOSTIC IMPRESSION: Delirium -- mixed level of activity -- acute. 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 Unspecified depressive disorder. RECOMMENDATIONS: The patient will require assistance in the management of medication, finances and nutrition. Supervision will be necessary for him to maintain safety. He has discontinued driving, this should continue to be avoided. Treatment program for alcohol/substance abuse is indicated. A followup neuropsychological assessment approximately 6 weeks post-discharge will assist in establishing a more consistent level of cognitive functioning. Following discharge, a workup for neurodegenerative disorder is indicated necessary. He will require assistance in management of his seizure medication. Thank you very much for allowing me to provide the consultation on this patient. ��������������������������������������������� <ELECTRONICALLY SIGNED> ���������������������������������������� By: Juan Peters, PhD ��������������������������������������������� 07/18/18 0624 1554 45 Juan Peters, PhD /nt
[2018-07-18 08:00] VITALS: BP 113/74
--- NOTE | 2018-07-18 11:47 | NUR ---
ASSUMED CARE AT 0700. PATIENT IS ALERT AND ORIENTED TO PERSON AND PLACE. PATIENT IS FORGETFUL AND IMPULSIVE. PATIENT HAS 1:1 SITTER AT THIS TIME. PATIENT STATES "HE WANTS TO LEAVE. " LUNGS ARE CLEAR. ABD IS SOFT WITH SOME ASCITES. PATIENT IS JAUNDICED. ABD IS SOFT WITH BSX4. UP TO THE BATHROOM TO VOID TRE COLORED URINE. PATIENT IS MAX ASSIST 2 THIS A.M. FOR TRANSFERS. FALL AND SAFETY PROTOCOLS IN PLACE. DENIES ANY PAIN AT THIS TIME. CONTINUES TO PROGESS SLOWLY TOWARDS D/C GOALS. WILL CONTINUE TO MONITER.
--- NOTE | 2018-07-18 13:52 | NUR ---
team meeting, recommendation: pt had sitter since last night impulsive. seizure precaution. been working with therapy, using [facility]. consult for dr rusty griffith, consideration of possible re[facility]-pysch inpt when ready for dc as mobility improves. re-team
[2018-07-18 20:05] VITALS: BP 106/57
[2018-07-18 21:40] VITALS: BP 118/62
--- NOTE | 2018-07-19 05:03 | NUR ---
ASSUMED CARE FOR PT.@1900 PT ASLEEP IN BED AND HAS A SITTER AT BEDSIDE. ASSESSMENT STARTED PT ALERT TO SELF AND SITUATION. HS MEDS GIVEN AND PT NALLELY IT WELL. LUNGS CLEAR. PT AWKE AT MIDNIGHT SITTING ON BEDSIDE STATING WANTS TO GO HOME TO SEE , THIS NURSE REDUCATED PT AND ENCOURAGED HIM TO STAY IN BED. PT REPOSITONED IN BED. ASSISTX2, FALL PREC IN PLACE AND BED ALARM ON. HOURLY ROUND DONE AND PT SLEPT THROUGH THE NIGHT. WILL CONTINUE TO MONITOR
[2018-07-19 07:30] VITALS: BP 123/67
--- NOTE | 2018-07-19 07:59 | NUR ---
ASSUMED CARE AT 0700. PATIENT IS ALERT AND ORIENTEDX3. PATIENT AGUILAR'S, SINK MAKER ARE EQUAL. LUNGS ARE CLEAR. ABD IS SOFT WITH BSX4. NO C/O ABD DISCOMFORT. IN BED WITH SR UP X4 DR. LEYVA. DR. PIERCE CONSULTED FOR MANAGEMENT. FALL AND SAFETY PROTOCOLS IN PLACE. DENIES ANY PAIN. CONTINUES TO PROGRESS TOWARDS D/C GOALS. WILL CONTINUE TO MONITER.
--- NOTE | 2018-07-19 15:12 | NUR ---
Patient participated in community reintegration on 07/19/18 with PHYSICAL THERAPY. Refer to documentation by PT. VALENTINE
[2018-07-19 19:37] VITALS: BP 124/63
--- NOTE | 2018-07-20 01:08 | NUR ---
PT ASSESSMENT COMPLETED AND VSS. MEDS GIVEN ORDERED AND WELL TOLERATED. FALL PRECAUTIONS IN PLACE. PT VERY IMPULSIVE AND CLIMBING OUT OF BED FREQUENTLY DURING THE NIGHT. VERY CONFUSED AT TIMES. PT DOES NOT ALWAYS REMEMBER THAT HE IS AT THE HOSPITAL. HE THINKS STAFF ARE BREAKING INTO HIS APARTMENT. HE SAID THAT HE WAS IN HIS APARTMENT. SEIZURE PRECAUTION PADS IN PLACE. 0 SEIZURES NOTED. LOOSE BM X 3 AT HS. UP TO BSC WITH 2 ASST. VERY WEAK. SLEEPING ON AND OFF. WILL CONTINUE TO MONITOR FREQUENTLY.
--- NOTE | 2018-07-20 09:07 | NUR ---
Patient participated in community reintegration on 07/19/18 with Physical Therapy. Refer to documentation by Pearl
--- NOTE | 2018-07-20 12:49 | NUR ---
Nutrition: pt seen per followup. Hx ascities, ETOH, cirrhosis, portal HTN, varices. S/P paracentesis. Esophageal varices per EGD. Malnutrition doc per physician-defer dx. No new weight since 07/12. Intake is variable per records 50-100% of meals. Previously had reported pt with good appetite. Continues on thiamine, vitamin and lactulose. [id number]. Remains mildly confused. Continue ensure daily and monitor nutritional parameters. REC obtain new weight. Follow weekly.
[2018-07-20 19:12] VITALS: BP 128/64
--- NOTE | 2018-07-20 19:25 | NUR ---
ASSUMED CARE OF PT AT 0730. PT IS ALERT AND ORIENTED TO PERSON AND FREQUENTLY REQUIRES REORIENTATION, IS IMPULSIVE AND REQUIRES 15 MINUTE VISUAL CHECKS BY NURSING. PT HAS BEEN SEEN BY NURSING TURNING OFF HIS CHAIR ALARM AND DESPITE EDUCATION PT DOES NOT USE CALL LIGHT WHEN IN NEED OF ASSISTANCE. PT SEEN TRYING TO CRAWL OVER BED RAILING ON MULTIPLE OCCASSIONS AND ARE IN PLACE FOR SEIZURE PRECAUTIONS. PT INCONTINENT OF URINE AT LEAST 3 TIMES THIS SHIFT AND REQUIRED 1-2 PERSON ASSISTANCE WITH GETTING CLEANED AFTER INCONTINENT EPISODES. PT TAKES HIS MEDICATIONS WHOLE WITH THIN LIQUIDS. SEIZURE AND FALL PRECAUTIONS IN PLACE AND NURSING WILL CONTINUE TO MONITOR.
--- NOTE | 2018-07-21 01:31 | NUR ---
PT ASSESSMENT COMPLETED AND VSS. MEDS GIVEN ORDERED AND WELL TOLERATED. FALL PRECAUTIONS IN PLACE. PT VERY CONFUSED AND AGITATED THIS EVENING. PT VERY IMPULSIVE AND TRYING TO GET UP CONSTANTLY. THIS RN WAS IN PT ROOM MOST OF THE EARLY EVENING TO PREVENT PT FROM FALLING. PRN MEDICATION HELPFUL AFTER SOME TIME. PROVIDED MUCH EMOTIONAL SUPPORT. SEIZURE PRECAUTIONS IN PLACE. 0 SEIZURES NOTED. SLEEPING AT THIS TIME. WILL CONTINUE TO MONITOR FREQUENTLY.
[2018-07-21 04:27] LABS: HEMATOCRIT 33.2 % (42.0-52.0); HEMOGLOBIN 11.5 gm/dL (14.0-18.0); MCH 36.2 pg (26.0-34.0); MCHC 34.6 g/dL (28.0-37.0); MCV 104.8 fL (80.0-100.0); PLATELET COUNT 117 thou/uL (150-400); RBC 3.17 mil/uL (4.50-6.00); RDW 13.3 % (10.5-14.5); WBC 7.9 thou/uL (4.0-11.0)
[2018-07-21 04:42] LABS: CALCIUM 8.7 mg/dL (8.5-10.1); CREATININE 0.7 mg/dL (0.7-1.3); MAGNESIUM 1.3 mg/dL (1.8-2.4); POTASSIUM 4.1 mmol/L (3.5-5.1)
[2018-07-21 06:27] LABS: ABSOLUTE NEUTROPHILS 5.5 thou/uL (1.4-8.2); PLATELET ESTIMATE DECREASED
[2018-07-21 06:28] LABS: ANISOCYTOSIS 1+; POIKILOCYTOSIS 1+
--- NOTE | 2018-07-21 11:05 | NUR ---
ASSUMED CARE AT 0700. PATIENT IS ALERT AND ORIENTEDX3,BUT FORGETFUL AND BEGINS HAVING CONFUSTION IN THE AFTERNOONS. PATIENT AGUILAR', RESEARCH ANTHROPOLOGIST ARE EQUAL. PATIENT REMAINS ON SEIZURE PRECAUTIONS. LUNGS ARE CLEAR. ABD IS SOFT WITH BSX4. UP TO THE BATHROOM WITH ASSIST OF 1 STAFF, GAIT BELT AND WALKER. UP TO THE DINING ROOM FOR MEALS. HERE FOR BREAKFAST. FALL AND SAFETY PROTOCOLS IN PLACE. DENIES PAIN AT THIS TIME. NO SEIZURES NOTED AT THIS TIME. CONTINUES TO PROGRESS SLOWLY TOWARDS D/C GOALS. WILL CONTINUE TO MONITER.
[2018-07-21 20:02] VITALS: BP 105/65
--- NOTE | 2018-07-22 05:38 | NUR ---
ANGRY LAST EVENING THAT FAMILY LEFT BUT DID NOT TAKE HIM WITH THEM. AGREED TO LIE DOWN IN BED NOT LONG BEFORE VISITED BY AND HIS BROTHERS FROM [place]. INCONTINENT OF URINE, DECLINED MIRALAX DUE TO LARGE BM 07/21 AFTERNOON. HAS SLEPT WELL OVERNIGHT
[2018-07-22 08:45] VITALS: BP 102/59
--- NOTE | 2018-07-22 11:42 | NUR ---
ASSUMED CARE AT APPROX 0715. PATIENT A/O X1. FORGETFUL, IMPULSIVE. UP X1 MOD-MAX ASSIST THIS DATE FOR TRANSFERS/STANDING TO TOILET. PATIENT'S FAMILY AT BEDSIDE THIS AM. PATIENT PROPELLS SELF AROUND UNIT IN WC, WC BELT AND GAIT BELT IN PLACE, ROUNDED ON MORE FREQUENTLY THAN HOURLY ROUNDS AND VISIBLE FROM NURSES STATION. DOORS TO UNIT REMAIN CLOSED WHEN PATIENT IS UP IN WC. OUT TO TABLES FOR MEALS. BRIEFS MONITORED FOR INCONTINENCE, PATIENT OFFERED URINAL PERIODICALLY TO ASSIST WITH CONTINENCE. FALL PRECAUTIONS IN PLACE. WILL CONTINUE TO MONITOR.
[2018-07-22 19:30] VITALS: BP 109/62
[2018-07-23 01:26] VITALS: BP 109/62
--- NOTE | 2018-07-23 04:19 | NUR ---
PT UP IN WC EARLY IN SHIFT. ATTEMPTED TO USE RESTROOM W/O SUCCESS. ESCORTED TO BED AND SETTLED. TURNED Q2H THROUGH THE NIGHT. INCONTINENT X2 WHILE SLEEPING. LINEN CHANGED AND PT CLEANED. SOME CONFUSION NOTED, BUT COOPERATIVE WITH TREATMENT. TOOK HS MEDS PRESCRIBED. SLEPT WELL THROUGH THE NIGHT.
[2018-07-23 08:20] VITALS: BP 106/75
--- NOTE | 2018-07-23 11:27 | NUR ---
ASSUMED CARE OF PT AT 0715. PT IS A&OX1-2 CONFUSED AND IMPULSIVE AND HAS PERIODIC REPORTS SEEING INDIVIDUALS OR OBJECTS THAT ARE NOT PRESENT. PT DOES NOT USE CALL LIGHT AND FREQUENTLY ATTEMPTS TO SELF TRANSFER AND AMBULATE. PT AND FAMILY ON THE UNIT WITH PT. FALL AND SEIZURE PRECAUTIONS IN PLACE AND NURSING WILL CONTINUE TO MONITOR.
[2018-07-23 19:28] VITALS: BP 119/66
--- NOTE | 2018-07-23 23:29 | NUR ---
PT VERY CONFUSED AND IMPULSIVE. VSS. MEDS GIVEN ORDERED. 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 THAT HE WAS BEING TESTED TO SEE IF HE WOULD GET THE JOB. HE SAID HE IS ANGRY ABOUT BEING ASKED TO WORK HERE. ATTEMPED TO REORIENT PT. PROVIDED MUCH EMOTIONAL SUPPORT. PRN AGITATION MEDICATION HELPFUL. SLEEPING AT THIS TIME. WILL CONTINUE TO MONITOR FREQUENTLY.
[2018-07-24 08:15] VITALS: BP 107/67
--- NOTE | 2018-07-24 12:20 | NUR ---
cm notified by bedside nurse that pt had question rt dcp, and placement. cm spoke with olene " the way he is, he not going to be able to go home. need to know if he is going to be like this medically, and for cognitively. "/quinton. cm called and spoke with her, education on snf, ana, outpt ethol ( [facility]) support. snf and custodial/il list left for to look at " he cant not afford private pay, so not option and just need to know what team is saying"/. re-education on team meeting on tuesday and will notified pt and family of recommendation by wednesdays. "thanks, just confused"/. will cont following as needed for dc needs.
--- NOTE | 2018-07-24 15:26 | PLAN ---
[facility] [place] [address] REHAB UNIT PLAN OF CARE Name: LYLA HARLEY Room #: 513-P ADM IN M.R.#: [id number] Admission: 07/12/18 ������������������ Attend Phys: Hudson Alcaraz MD Discharge: ������������������ Date of : 50 Report #: [id number] THIS REPORT FOR: //name// CC: Hudson Bai DATE OF SERVICE: 07/14/2018 PROGRESS NOTE/OVERALL PLAN OF CARE SUBJECTIVE: The patient was seen back in followup. He was in no distress. Temperature 97.5, pulse 67, respirations 17, blood pressure 125/69. We have been working with him in therapies with transfers, max assist; gait, max assist 7 feet in the parallel bars. In occupational therapy, lower body dressing is dependent. In speech therapy, he has moderate memory and cognitive deficits. He is in bed right across from the nurse's station, so we can keep a close eye on him on the alejandra. 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 2. Alcoholic encephalopathy with withdrawal. 3. Cirrhosis with ascites. 4. Status post paracentesis. 5. Esophageal varices with portal hypertensive gastropathy. 6. Tobacco abuse. PLAN: Note that there is consideration for the patient to be evaluated for possible liver transplant at or at [facility] per GI note. The current plan for a rehab perspective is the overall plan of care, which is based on the preadmission screen, post-admission physician evaluation and information garnered from therapy assessments. 1. Estimated length of stay is probably at least 2 weeks and likely longer depending upon how he does. 2. Medical prognosis is reasonably good from a rehabilitation perspective. 3. Anticipated interventions includes the interdisciplinary acute inpatient rehabilitation program. 4. Anticipated functional outcomes would be for the patient to become modified independent with transfers, mobility, ADLs, had a walker level and to improve as far as cognition. 5. Discharge destination would be back home with his . 6. Expected therapy by discipline includes PT, OT and speech 1 hour per day [address] [address] REHAB UNIT PLAN OF CARE Name: LYLA HARLEY Claire Room #: 513-P [facility] IN ..#: [id number] Admission: 07/12/18 ������������������ Attend Phys: Hudson Alcaraz MD Discharge: ������������������ Date of : 50 Report #: [id number] each five days a week throughout the duration of the acute inpatient rehabilitation stay. ��������������������������������������������� <ELECTRONICALLY SIGNED> ���������������������������������������� By: Hudson Alcaraz MD ��������������������������������������������� 07/24/18 1526 [id number] Hudson Alcaraz MD /nt
--- NOTE | 2018-07-24 15:26 | H ---
[facility] [place] [address] HISTORY AND PHYSICAL Name: LYLA HARLEY Room #: 513-P ADM IN .R.#: [id number] Admission: 07/12/18 ������������������ Attend Phys: Hudson Alcaraz MD Discharge: ������������������ Date of : 50 Report #: [id number] THIS REPORT FOR: //name// CC: Hudson Bai DATE OF SERVICE: 07/13/2018 HISTORY AND PHYSICAL/POSTADMISSION PHYSICIAN EVALUATION HISTORY OF PRESENT ILLNESS: The patient is a 67-year-old white male who was originally admitted on 07/06/2018 with weakness of the upper and lower extremities, history of a recent fall, a week prior to his original admission increased balance problems. He ended up being on the ground for about 2 hours after a fall. He also had a history of a severe seizure approximately a week prior to his acute hospital admission. CT of the head was negative. He has a history of alcohol abuse and abdominal ultrasound revealed cirrhosis with ascites. He ended up needing paracentesis. He underwent alcohol withdrawal with delirium tremens. He was tapered off the Librium, noted to have esophageal varices with portal hypertensive gastropathy per EGD. He has noted severe paroxysmal myopathy and problems with confusion and alcoholic encephalopathy. He was quite weak with his proximal myopathy, significant functional decline from his premorbid level and he has now been admitted for acute in-hospital inpatient rehabilitation. PAST MEDICAL HISTORY: Includes history of tobacco abuse for the last 10 years, history of skin cancer and umbilical hernia, right hammertoe correction. HABITS: Current every day smoker, 1 pack per day. History of alcohol use, 4 drinks per day of vodka. MEDICATIONS: Please see the full medication listing as noted. ALLERGIES: No known drug allergies. SOCIAL HISTORY: , lives with , julio cesar, 2 steps in, premorbidly was ambulatory without gait aids. 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 There are no other family members that he had noted were in the area. REVIEW OF SYSTEMS: No current complaints of chest pain, shortness of breath, abdominal discomfort. He had noted he was overall weak. PHYSICAL EXAMINATION: GENERAL: A 67-year-old white male who was seen earlier. He was sleepy, but responsive. VITAL SIGNS: Temperature 36.8, pulse 89, respirations 20, and blood pressure [address] [address] HISTORY AND PHYSICAL Name: LYLA HARLEY Room #: [address] [place] [address] IN .R.#: [id number] Admission: 07/12/18 ������������������ Attend Phys: Hudson Alcaraz MD Discharge: ������������������ Date of : 50 Report #: [id number] 102/70. NEUROLOGIC: Facies were symmetric. He can follow basic 1 step commands, latency to his responses. CHEST: Sounded clear to auscultation. CARDIOVASCULAR: Regular rate and rhythm. ABDOMEN: Bowel sounds positive, nontender. GENITOURINARY AND RECTAL: Deferred. EXTREMITIES: He has functional range of motion of both upper extremities with strength grade 4-/5. DTRs were trace to 1. Lower extremities functional range of motion with strength grade 3+/5 to 4-/5. He has some decreased coordination noted with dexterity testing. He has needed significant assistance mod to max assist for basic transfers and attempt at short distance ambulation. ASSESSMENT: A 67-year-old white male with the following problems: 1. 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 2. Alcoholic encephalopathy with withdrawal. 3. Cirrhosis with ascites. 4. Status post paracentesis. 5. Esophageal varices with portal hypertensive gastropathy. 6. Tobacco abuse. PLAN: The patient is admitted for acute in-hospital inpatient rehabilitation. From a postadmission physician evaluation perspective, there are no relevant changes since the preadmission screening. Please see the above review of prior and current medical and functional conditions and comorbidities. Please see the patient's previous and current functional status. As far as risk of complications, he does have multiple medical comorbidities as noted above. Initial plan of care involves the interdisciplinary acute inpatient rehabilitation program with the goal of maximizing his functional independence, so he can hopefully return back to his prior living situation. Measurable functional goals would be for the patient to become modified independent with transfers, mobility and ADLs, cognition, so that he can return back to the home setting. Prognosis is reasonably good with estimated length of stay probably at least the next 10-14 days pending progress. He is at a low functional level. Potential barriers would include his multiple medical comorbidities and decreased functional status. The patient meets diagnostic criteria for an acute in-hospital inpatient rehabilitation stay. He meets the medical necessity criteria and we will have the virtualization consultant physicians continue to follow. He does have the tolerance for therapies and has appropriate discharge goals back to the home setting. ��������������������������������������������� <ELECTRONICALLY SIGNED> ���������������������������������������� By: Hudson Alcaraz MD ��������������������������������������������� 07/24/18 1526 [id number] Hudson Alcaraz MD /nt
--- NOTE | 2018-07-24 15:26 | HC ---
[facility] [place] [address] CONSULTATION Name: LYLA HARLEY Room #: 513-P ADM IN M.R.#: [id number] Admission: 07/12/18 ������������������ Attend Phys: Hudson Alcaraz MD Discharge: ������������������ Date of : 50 Report #: [id number] THIS REPORT FOR: //name// CC: Hudson Bai DATE OF SERVICE: 07/12/2018 HISTORY OF PRESENT ILLNESS: The patient is a 67-year-old male admitted with weakness of upper and lower extremities, history of recent fall last week, had increased balance problems and ended up having a fall and being on the ground for approximately 2 hours. He also has a history of severe seizure a week prior to admission. CT of the head was negative. He has a history of alcohol abuse and abdominal ultrasound revealed cirrhosis with ascites. He ended up needing paracentesis. He underwent alcohol withdrawal with delirium tremens. He was tapered off Librium, noted to have esophageal varices with portal hypertensive gastropathy per EGD. He has severe paroxysmal myopathy and also has had problems with confusion/alcoholic encephalopathy. He is quite weak with his proximal myopathy, needing considerable assistance with functional mobility and ADLs. We are seeing him in Rehabilitation Medicine consultation. PAST MEDICAL HISTORY: Includes smoker history for the last 10 years, history of skin cancer, umbilical hernia, right hammertoe correction. HABITS: Current every day smoker, 1 pack per day; history of alcohol use, 4 drinks per day of vodka. MEDICATIONS: Please see the full medication listing as noted. ALLERGIES: No known drug allergies. SOCIAL HISTORY: , lives with , julio cesar, 2 steps in, premorbidly was ambulatory without gait aids. 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 There are no other family members that he notes are in the area. REVIEW OF SYSTEMS: No current complaints of chest pain, shortness of breath or abdominal discomfort. Notes, he is overall weak. PHYSICAL EXAMINATION: GENERAL: A 67-year-old white male, in no obvious distress. He was sleepy, but arousable, appeared cooperative, asked appropriate questions. VITAL SIGNS: Temperature 98.9, pulse 67, respirations 19, blood pressure 105/61. NEUROLOGIC: Facies are symmetric. He can follow basic 1 step commands. There is definitely some latency to his responses. He has functional range of motion of both upper extremities. Strength is a grade 4 to 4-/5. DTRs are trace to 1. [address] [address] CONSULTATION Name: LYLA HARLEY Room #: 513-P [facility] IN [facility].#: [id number] Admission: 07/12/18 ������������������ Attend Phys: Hudson Alcaraz MD Discharge: ������������������ Date of : 50 Report #: [id number] Lower extremities functional range of motion, strength is grade 4 to 4-/5. He does have some decreased coordination noted with dexterity testing. He was mod assist with sit to stand. Gait was max assist 15 feet with a front-wheeled walker. ABDOMEN: There is some distention noted and he appears to have some fluid/ascites. I did not actually check for a fluid wave; however. ASSESSMENT: A 67-year-old white male with the following problems: 1. 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 2. Alcoholic encephalopathy with withdrawal. 3. Cirrhosis with ascites. 4. Status post paracentesis. 5. Esophageal varices with portal hypertensive gastropathy. 6. Tobacco abuse. PLAN: Discussion with physical therapy. He really is quite weak with his myopathy and has decreased balance and has had a significant functional deficit from his premorbid level. There is also the cognitive issues with his alcoholic encephalopathy. He is improving post-withdrawal, but still has significant functional deficits overall. Insurance precertification issues to be checked regarding an acute in-hospital inpatient rehabilitation stay to improve his strength and endurance, functional independence, so he can get to a point where he can then return back to the home setting, get some outpatient versus inpatient alcohol rehabilitation, etc. We will be glad to follow along regarding his physical rehabilitation needs. ��������������������������������������������� <ELECTRONICALLY SIGNED> ���������������������������������������� By: Hudson Alcaraz MD ��������������������������������������������� 07/24/18 1526 [id number] Hudson Alcaraz MD /[facility]
--- NOTE | 2018-07-24 15:41 | NUR ---
ASSUMED CARE OF PT AT 0715. PT IS A&OX1-3 AND HAS FREQUENT PERIODS OF FORGETFULNESS, DELUSIONS, IMPULSIVITY AND AGITATION. PT TAKES MEDICATIONS ONE AND A TIME WITH THIN LIQUIDS. PT TRANSFERS AND AMBULATES WITH 1 PERSON MODERATE ASSISTANCE USING GAIT BELT AND WALKER. PT REPORTS NO PAIN AND PARTICIPATED IN SCHEDULED THERAPIES. PT BROUGHT TO THE NURSES STATION WHEN NOT IN THERAPIES FOR SAFETY. FALL PRECAUTIONS IN PLACE AND NURSING WILL CONTINUE TO MONITOR.
[2018-07-24 19:18] VITALS: BP 117/74
--- NOTE | 2018-07-25 01:29 | NUR ---
PT ASSESSMENT COMPLETED AND VSS. PT VERY AGITATED AND TRYING TO REMOVE VELCRO SAFETY ON WHEELCHAIR. PT DOES NOT KNOW WHERE HE IS AND THINKS WE HAVE ENTERED HIS HOME. HE REMAINS VERY CONFUSED THIS EVENING. MAX 2 ASST TRANSFER THIS EVENING. INC OF URINE. PRN AGITATION AND PAIN MEDICATION HELPFUL. SLEEPING ON AND OFF. SEIZURE PADS IN PLACE. WILL CONTINUE TO MONITOR FREQUENTLY.
[2018-07-25 05:27] VITALS: BP 115/72
[2018-07-25 06:12] LABS: ALBUMIN 2.6 g/dL (3.4-5.0); DIRECT BILIRUBIN 0.9 mg/dL (<0.1-0.3); TOTAL BILIRUBIN 1.7 mg/dL (<0.1-1.0); TOTAL PROTEIN 7.2 g/dL (6.4-8.2)
[2018-07-25 06:14] LABS: INR 1.3; PROTIME 13.4 Seconds (9.3-11.4)
[2018-07-25 07:30] VITALS: BP 103/71
--- NOTE | 2018-07-25 18:05 | NUR ---
Team conference held today. Recommendations discussed with the pt's this evening. Pt has been trying to leave the unit. He is independent with w/c mobility. He has been sitting with staff in the evenings when he seems the most aggitated. [facility] referral discussed. His is agreeable if they can accept. Should the pt need snf, cm to check benefits with [facility] as they are the primary payor over his Medicare part A. Therapy is contiuing to work on transfers and gait. He walked 200' with a fww with min assist and min to mod a with sit to stand. Elyse is continuing to follow and adjust his meds. His continues on lactolose and his amonia level is wnl. Options for [facility] stay, SNF stay, home with and 24hr care and parts counterman care placment discussed. Pt's is considering taking fmla if needed. Support provided. Will follow.
[2018-07-25 19:38] VITALS: BP 140/79
--- NOTE | 2018-07-25 21:24 | NUR ---
ASSUMED CARE OF PT AT 0715. PT IS A&OX1-3 AND HAS PERIODS OF INCREASED AGITAITION, CONFUSION, DELUSIONS, AND ANXIETY, VITAL SIGNS ARE STABLE. PT IS NON-COMPLIANT WITH FALL PRECAUTIONS. PT LEFT UNIT WITH FAMILY DURING DINNER AND STAFF NEEDED TO RETURN PT TO UNIT. PRN MEDICAITONS GIVEN FOR PAIN AND AGGITATION WITH NO EFFECT. SITTER AT THE BEDSIDE. PT CALLED YELLED AT STAFF AND PTS FOLLOWING DINNER TO LET HIM GO HOME. STAFF UNABLE TO REDIRECT PT. SECURITY CALLED TO UNIT TO TALK WITH PT TWICE DURING CHANGE OF SHIFT REPORT DUE TO INCREASED AGITATION AND ATTEMPTS TO HIT STAFF. SEIZURE AND FALL PRECAUTIONS IN PLACE AND NURSING WILL CONTINUE TO MONITOR.
--- NOTE | 2018-07-25 22:30 | NUR ---
AGITATED, UP IN W/C ARGUEING ON THE PHONE FOR 90 MINUTES. ASKED FOR HELP USING THE BATHROOM, BUT WAS ALREADY QUITE SOAKED IN URINE. IT TOOK SOME PERSUASION BY STAFF TO HELP HIM OUT OF HIS WET CLOTHES AND TO LIE DOWN IN BED. DOZED OFF QUICKLY AND DID NOT WANT TO BOTHER TAKING HIS MEDS. PATIENT ENCOURAGED TO AT LEAST TAKE HIS SEIZURE MEDS. HE TOOK THEM AND A FEW MORE AND THEN ASKED FOR A PAIN PILL FOR HIS SORE BACK. SITTER TO STAY UNTIL 2300 IN CASE HE REAWAKENS ANGRILY.
--- NOTE | 2018-07-26 03:45 | NUR ---
RESTING WELL UNTIL NOW. WET BED CHANGE. ASSISTED TO STANDING POSITION WITH GAIT BELT AND BED UP TO SACRAL LEVEL WHILE HE USED URINAL FOR 250 ML. BACK IN BED WITH SEIZURE PADS IN PLACE, BED ALARM ON AND REMAINS IN SIGHT OF NURSES STATION.
[2018-07-26 08:30] VITALS: BP 107/75
--- NOTE | 2018-07-26 09:46 | NUR ---
ASSUMED CARE AT 0700. PATIENT IS ALERT AND ORIENTED X1-2 TODAY. PATIENT AGUILAR'S, REFRIGERATOR ROOM CLERK ARE EQUAL. LUNGS ARE CLEAR. ABD IS SOFT WITH BSX4. UP IN W/C THIS AM TO DINING ROOM FOR MEALS. PATIENT IS INCONTINENT OF B & B. FALL AND SAFETY PROTOCOLS IN PLACE. DENIES ANY PAIN AT THIS TIME. PATIENT HAS 1:1 SITTER R/T TO ELOPEMENT RISK AND AGITATION. DR. PIERCE TO BE RECONSULTED FOR REEVAL FOR BEHAVIORS AND AGITATION. CONTINUES TO PROGRESS TOWARDS D/C GOALS. WILL CONTINUE TO MONITER.
--- NOTE | 2018-07-26 14:51 | NUR ---
Nutrition followup: pt eating variable amounts of meals, 50-100% with ensure ordered once daily. Nsg to encourage intake of the supplement at dinner. No new weight since 07/12, will request. Prior weights were stable. NH3 now WNL. Continues on lactulose, thiamine and vitamin. Recent agitation and wanting to leave per nsg. Continue present interventions, low risk.
[2018-07-26 20:33] VITALS: BP 108/71
--- NOTE | 2018-07-27 03:13 | NUR ---
ASSUMED CARE OF PT AT 1915. PT IS ALERT AND ORIENTED TO PERSON. EARLY IN SHIFT PT AGITATED, CONFUSED, DELUSIONAL, IMPULSIVE, AND RESTLESS. REPORT INDICATED THAT JUST PRIOR TO SHIFT CHANGE PT HAD BECOME COMBATIVE, WAS STRIKING AT STAFF AND , ELOPED FROM THE UNIT, AND CALLED 911 FROM PERSONAL CELL PHONE. SITTER PRESENT IN ROOM, DOORS ARE CLOSED TO THE UNIT, PT ROOM DOOR IS OPEN, PT IN LINE OF SITE OF NURSING STATION, AND PT TREATED WITH PO MEDICAIONS PER ORDERS. PT IS ON SEIZURE PRECAUTIONS FOR HX OF SEIZURES. PT REPORTED BACK PAIN EARLY IN SHIFT AND WAS TREATED WITH PO MEDICATIONS. FALL PRECAUTIONS IN PLACE AND NURSING WILL CONTINUE TO MONITOR.
[2018-07-27 08:24] VITALS: BP 110/74
--- NOTE | 2018-07-27 13:50 | NUR ---
ASSUMED CARE AT 0700. PATIENT IS ALERT AND ORIENTED TO SELF. 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 HE QUIT! PATIENT CONTINUES ON 1:1. PATIENT UP TO THE DINING ROOM FOR MEALS. UP WITH ASSIST OF ONE STAFF AND GAIT BELT TO BR TO VOID TRE COLORED URINE. FALLL AND SAFETY PROTOCOLS IN PLACE. DENIES NAY PAIN. CONTINUES TO PROGRESS SLOWLY TOWARDS D/C GOALS. WILL CONTINUE TO MONITER.
[2018-07-27 19:09] VITALS: BP 122/70
--- NOTE | 2018-07-27 22:00 | NUR ---
WET BRIEF REMOVED AND LEFT OFF FOR THE NIGHT, MEDS GIVEN, SITTER AT BEDSIDE
--- NOTE | 2018-07-28 02:23 | NUR ---
PATIENT HAS BEEN SLEEPING SINCE BACK TO BED WILL EVALUATE BEHAVIOUR WHEN HE WAKES UP THIS MORNING.
--- NOTE | 2018-07-28 05:33 | NUR ---
INCONTINENT WITH TRE URINE TO EDGE OF LINEN SAVER, LORNA-CARE WITH PATIENT C/O WIPES BEING COLD. GOWN AND TOP COVER CHANGED. PATIENT QUICKLY DRIFTING BACK TO SLEEP. BED ALARM ON, NEGRITO OBSERVATION, ROOM 513 ACROSS FROM NURSE STATION. SEIZURE PADS IN PLACE
[2018-07-28 08:54] VITALS: BP 117/76
--- NOTE | 2018-07-28 09:55 | NUR ---
cm spoke with quinton via phone call, discussed snf location if needed for dc with [facility] [address] [facility]. "going to see about getting him med b, d and medicaid in case need it. thank you for all your help,". will cont following as needed for dc needs.
--- NOTE | 2018-07-28 18:12 | NUR ---
ASSUMED CARE AT APPROX 0715. PATIENT A/O X1. DENIES PAIN. FORGETFUL AND CONFUSED AT TIMES. UP X1 ASSIST GB AND WALKER. IMPULSIVE. FALL PRECAUTIONS IN PLACE, HOWEVER PATIENT REFUSES SAFETY BELT WHILE IN WHEELCHAIR, BECOMES AGITATED WHEN STAFF ATTEMPTS TO FASTEN BELT. PATIENT ROLLING AROUND UNIT IN WHEELCHAIR, SUPERVISED BY STAFF. PRN AGITATION MEDICATION ADMINISTERED, NO EFFECT NOTED. SCHEDULED DOSE GIVEN, WILL CONTINUE TO MONITOR RESPONSE. PATIENT INCONTINENT THIS DATE, UNABLE TO COLLECT UA. CLEAN URINAL AVAILABLE, WILL CONTINUE TO ATTEMPT TO COLLECT SPECIMEN. WILL CONTINUE TO MONITOR.
[2018-07-28 20:38] VITALS: BP 120/69
--- NOTE | 2018-07-28 21:00 | NUR ---
PATIENT STILL UP IN WHEELCHAIR WHEN DR PIERCE CAME BY TO VISIT. SHE TOOK HIS CIGARETTE THAT HE HAD BEEN HOLDING MOST OF THE AFTERNOON, AND TALKED WITH HIM AT SOME LENGTH. SHE INCREASED HIS HS DOSE OF ZYPREXA AND WILL MONITOR HOW WELL HE TOLERATES IT. HE IS TELLING STAFF ABOUT THE DAYS WHEN HE PLAYED WITH [employer]. TAKING MEDS INCLUDING LACTULOSE WITH GULPS OF WATER. WITH HIS PERMISSION, CHANGED INTO GOWN AND STOOD AT BEDSIDE TO USE FRESH URINAL FOR UA TO SEND TO LAB IN ORDER TO RULE OUT UTI PART THE CAUSE OF HIS BEHAVIOUR.
[2018-07-28 21:12] LABS: URINE BILIRUBIN NEGATIVE (Negative); URINE BLOOD NEGATIVE (Negative); URINE CLARITY CLEAR; URINE COLOR YELLOW; URINE GLUCOSE-RANDOM* NEGATIVE (Negative); URINE KETONES TRACE (Negative); URINE LEUKOCYTES-REFLEX NEGATIVE (Negative); URINE NITRITE-REFLEX NEGATIVE (Negative); URINE PROTEIN (DIPSTICK) NEGATIVE (Negative)
[2018-07-29 07:31] VITALS: BP 102/62
--- NOTE | 2018-07-29 07:50 | NUR ---
ASSUMED CARE AT 0700. PATIENT IS ALERT AND ORIENTED X4. PATIENT AGUILAR'S WITHOUT PROBLEM. NO EDEMA NOTED IN LOWER EXTREMITIES. LUNGS ARE CLEAR. ABD IS SOFT WITH BSX4. SKIN IS JAUNDICE COLORED. VOIDS PER URINAL. PATIENT WAS TOTALLY INCONTINENT OF URINE. UP IN W/C TO D.R. FOR MEALS. FALL AND SAFETY PROTOCOLS IN PLACE. DENIES ANY PAIN. CONTINUES TO PROGRESS SLOWLY TOWARDS D/C GOALS. NO BEHAVIOR ISSUES AT THIS TIME. PATIENT IS PLEASANT AND COOPERATIVE. PATIENT HAS 1:1 SITTER AT THIS TIME. WILL CONTINUE TO MONITER.
[2018-07-29 19:30] VITALS: BP 109/73
--- NOTE | 2018-07-30 01:50 | NUR ---
PT AMBULATING TO BATHROOM WITH GAIT BELT, WALKER AND ASSIST X1 AND IS TOLERATING FAIR. DENIES PAIN. RESTING COMFORTABLY. NO NEEDS VOICED. CALL LIGHT WITHIN REACH. WILL CONTINUE TO PROVIDE FREQUENT OBSERVATION.
--- NOTE | 2018-07-30 07:40 | NUR ---
ASSUMED CARE AT 0700. PATIENT IS ALERT AND ORIENTED TO PERSON. 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 LUNGS ARE CLEAR. ABD IS SOFT WITH BSX4. PATIENT HAS SITTER 1:1 FOR ELOPEMENT RISK AND BEHAVIORS. UP TO THE DINING ROOM FOR MEALS. FALL AND SAFETY PROTOCOLS IN PLACE. DENIES ANY PAIN AT THIS TIME. CONTINUES TO PROGRESS SLOWLY TOWARDS D/C GOALS. WILL CONTINUE TO MONITER.
[2018-07-30 08:54] VITALS: BP 116/77
--- NOTE | 2018-07-30 20:00 | NUR ---
DRINKING WATER AND LACTULOSE WITH HS MEDS AND MOTRIN WHILE SITTING UP IN WC. HAS USED TOILET SITTING DOWN TWICE IN PAST 2 HOURS.
[2018-07-30 20:20] VITALS: BP 133/82
--- NOTE | 2018-07-30 21:00 | NUR ---
TRANSFER TO BED WITH GAIT BELT, WALKER, AND ONE PERSON ASSIST STAND AND GUIDE HIS SMALL STEPS. ASLEEP ALMOST IMMEDIATELY.
--- NOTE | 2018-07-30 23:30 | NUR ---
INCONTINENT, LORNA-CARE, FRESH LINEN SAVER, TURN TO RIGHT. FREQUENT OBSERVATION AND SEIZURE PADS CONTINUE
[2018-07-31 05:40] LABS: HEMATOCRIT 33.2 % (42.0-52.0); HEMOGLOBIN 11.5 gm/dL (14.0-18.0); MCH 35.5 pg (26.0-34.0); MCHC 34.5 g/dL (28.0-37.0); MCV 102.8 fL (80.0-100.0); PLATELET COUNT 104 thou/uL (150-400); RBC 3.23 mil/uL (4.50-6.00); RDW 13.1 % (10.5-14.5); WBC 10.7 thou/uL (4.0-11.0)
--- NOTE | 2018-07-31 05:46 | NUR ---
SKIN INTACT EXCEPT FOR RECENT SKIN TEAR LFA FROM EDGE OF PATIENT'S WATCH. SKIN TEAR COVERED WITH OPTIFOAM BORDER. PATIENT AWAKE NOW AND REFUSING TO STAY IN BED. UP IN WHEELCHAIR WITH CONSTANT OBSERVATION FOR NOW
[2018-07-31 06:08] LABS: CALCIUM 8.7 mg/dL (8.5-10.1); CREATININE 0.6 mg/dL (0.7-1.3); MAGNESIUM 1.4 mg/dL (1.8-2.4)
[2018-07-31 06:17] LABS: ABSOLUTE NEUTROPHILS 7.9 thou/uL (1.4-8.2); ATYPICAL LYMPHS 1 %; METAMYELOCYTES 2 %; MYELOCYTES 1 %
[2018-07-31 06:18] LABS: MACROCYTES 1+
[2018-07-31 08:00] VITALS: BP 123/71
--- NOTE | 2018-07-31 11:29 | NUR ---
ASSUMED CARE OF PT AT 0715. PT IS A&OX1, IMPULSIVE, AND WONDERING THE UNIT IN W/C. VITAL SIGNS ARE STABLE AND PROVIDERS NOTIFIED ABOUT ABNORMAL LAB VALUES. PT TAKES MEDICAITONS WHOLE WITH THIN LIQUIDS AND AMBULATES WITH 1 PERSON MIN TO MOD ASSIST USING GAIT BELT AND WALKER. SKIN TEAR TO THE LEFT FOREARM HAS OPTIFOAM DRESSING IN PLACE AND IS C/D/I. PT REPORTS NO PAIN AT THIS TIME AND PARTICIPATED IN SCHEDULED THERAPIES. ALARM TO [facility] ARMED PT WAS SEEN BY STAFF OPENING DOOR AND TRYING TO GO DOWN THE STAIRS. DOORS CLOSED TO THE UNIT WHILE PT IS IN W/C. SEIZURE AND FALL PRECAUTIONS IN PLACE AND NURSING WILL CONTINUE TO MONITOR.
[2018-07-31 19:25] VITALS: BP 117/70
[2018-07-31 20:15] VITALS: BP 117/70
--- NOTE | 2018-08-01 02:03 | NUR ---
PATIENT ASSESSED AND IS ALERT X 1-2. SKIN WARM AND DRY. IS VERY CONFUSED AND IMPULSIVE ALL NIGHT. HAS A LEFT SKIN TEAR ON FA. OPIFOAM ON THE AREA. DIET REGULAR BUT MEDS WITH THIN LIQUIDS.0N ROOM AIR. LUNGS CTA-DISM. INCONT AND WEARS A BREIF. DENIES ANY PAIN.PATIENT CRAWLS OUT OF BED ALL THE TIME. SEIZURE PADS IN BED IN TACT. NO SEIZURES NOTED THIS SHIFT SO FAR.BEEN HAVING LOOSE STOOLS FROM LACTULOSE. REMAINS A FALL RISK. ZYPREXA GIVEN THIS AM FOR AGITATION AT 0027. VOIDS PER BREIF IS INCONT MOST OF THE TIME. NO SKIN ISSUES. TURNED Q 2 HOURS AND PRN. MERILAX HELD THIS EVENING. HAD 2 BM'S TODAY.REMAINS A FALL RISK. DENIES ANY PAIN. CONT PLAN OF CARE.
[2018-08-01 07:30] VITALS: BP 116/67
--- NOTE | 2018-08-01 12:05 | NUR ---
ASSUMED CARES AT 0700. PT ORIENTED TO SELF ONLY, CONFUSED AND IMPULSIVE. DENIES PAIN. VITALS REMAIN STABLE. PT REMAINS INCONTINENT OF BOWEL AND BLADDER. URINE IS TRE, NO FOUL ODOR, NO SEDIMENT. STOOLS ARE LOOSE/WATERY, LARGE AMOUNTS. ANTI-SEIZURE PRECAUTIONS MAINTAINED. FREQUENT VISUAL CHECKS, ROOM BY NURSE'S STATION. UP WITH 1 MIN ASSIST, AMBULATING TO THE BATHROOM AND TOLERATING WELL. FALL PRECAUTIONS IN PLACE. CALL LIGHT WITHIN REACH
--- NOTE | 2018-08-01 12:51 | NUR ---
team meeting, recommendation: retirement vs 24hr cg at home. will discuss with , pt to have referrals sent out. dc when have accept facility. physician to discuss pt dx with rt her question.
--- NOTE | 2018-08-01 13:11 | NUR ---
Nutrition: pt seen per followup. Intake is good, 75-100% of meals. States not drinking the ensure, will D/C. No weight since 07/12. Prior weights stable. Diet liberalized from 2 gm Na to regular. NH3 up to 50. Continues on lactulose, vitamin. Hx cirrhosis. Continue as low risk.
--- NOTE | 2018-08-01 13:51 | NUR ---
FAXED REFERRAL TO [facility] LEFT MSG WITH JAMIR IN ADM TO REVIEW REFERRAL AND THAT PT IS DC READY. DCP MADE SURE SHE KNEW PT'S IS EMPLOYED HERE AT [employer] [facility] [employer] AND HAS [employer]. AND MEDICARE PART A/B PT'S SAID SHE SPOKE WITH MEDICARE AND HAS PART B ACTIVATED. DCP TO FOLLOW.
[2018-08-01 19:40] VITALS: BP 125/82
--- NOTE | 2018-08-01 20:30 | NUR ---
PATIENT REMOVING CHAIR ALARM, ALLOWED TO WALK WITH GAIT BELT AND WALKER UNTIL HE REALIZED, AT LEAST FOR THE MOMENT, THAT HE WAS TOO WEAK TO STAND ON HIS OWN. COOPERATIVE WITH TAKING PILLS AND LACTULOSE, AGAIN EXPLAINED LACTULOSE TO PATIENT AND I PROMISED HIM I WOULD NOT GIVE HIM ANY STOOL SOFTENERS OR LAXATIVES, BECAUSE LACTULOSE WAS ENOUGH, EVEN THOUGH HE NEEDS IT TO DECREASE AMMONIA LEVELS SO HE WILL BE TAKING IT FOR NOW. CHANGED TO GOWN AND HELPED INTO BED. ASLEEP WITHIN 15 MINUTES
--- NOTE | 2018-08-02 02:07 | NUR ---
BED ALARM AT ALL TIMES, FREQUENT OBSERVATION NEAR NURSE STATION AND SEIZURE PADS ON BED. PATIENT WALKED TO TOILET WITH GAIT BELT AND WALKER FOR BM PRIOR TO MIDNIGHT. SLEEPING SINCE THEN.
[2018-08-02 08:43] VITALS: BP 102/59
--- NOTE | 2018-08-02 09:55 | NUR ---
ASSUMED CARES AT 0700. PT AWAKE, ALERT AND ORIENTED TO SELF ONLY. CONFUSED AND IMPULSIVE. DENIES PAIN. VITALS REMAIN STABLE. PULSES ARE 2+/2+, HS STABLE. BS ACTIVE *4, ABDOMEN SOFT AND FLAT, MULTIPLE LOOSE STOOLS REPORTED IN THE NIGHT AND THIS AM, LACTULOSE GIVEN ORDERED R/T HIGH AMMONIA LEVELS. PT REMAINS JAUNDICED, CONTINUES TO HAVE ABRASIONS AND A SKIN TEAR ON THE ARM, DRESSING CHANGED. PT REMAINS IMPULSIVE, ELOPMENT RISK, FALL PRECAUTIONS IN PLACE, FREQUENT CHECKS ON PT. UP WITH MIN ASSIST, GAITBELT AND WALKER AND TOLERATED WELL. CALL LIGHT WITHIN REACH. PT DISCHARGING TODAY, REPORT WILL BE GIVEN TO RECEIVING RN BEFORE DC.
[2018-08-02] MEDS ORDERED: ALDACTONE50 MG PO (10:14)
[2018-08-02] MEDS ORDERED: MIRALAX17 GM PO (10:14)
[2018-08-02] MEDS ORDERED: DILANTIN100 MG PO (10:14)
[2018-08-02] MEDS ORDERED: MAGOX 400400 MG PO (10:14)
[2018-08-02] MEDS ORDERED: ZYPREXA 5 MG TAB5 M2 PO (10:14)
[2018-08-02] MEDS ORDERED: LACTULOSE20 GM/30 M PO (10:14)
[2018-08-02] MEDS ORDERED: IBUPROFEN 400400 M2 PO (10:14)
[2018-08-02] MEDS ORDERED: OLANZAPINE ODT5 MG PO ×2 (10:14)
[2018-08-02] MEDS ORDERED: PEPCID20 MG PO (10:14)
[2018-08-02] MEDS ORDERED: PROPRANOLOL 1010 MG PO (10:14)
--- NOTE | 2018-08-02 14:54 | NUR ---
PT DISCHARGING TODAY TO [facility] FAXED DC ORDERS/SUMMARY TO FACILITY SPOKE WITH JAMIR IN ADM SHE RECEIVED ORDERS AND ARRANGED TRANSPORTATION [facility]IA [facility] FOR 1300 TODAY. NOTIFIED PT'S (LEA) OF DC AND TIME OF TRANSPORT. UNIT NOTIFIED AND CHART COPY PER US. RN TO CALL REPORT TO [phone].
--- NOTE | 2018-08-04 16:21 | NUR ---
quinton reached out to zach to request [facility] paper work assistance. zach spoke with dr estevez and he is agreed to complete for her. [facility] paper work completed and giving back to quinton.
== END 2018-08-02 13:13 | DRG 92 ==
PROVIDERS: Nurse Practitioner; Psychiatry & Neurology Psychiatry; ADMIT Physical Medicine & Rehabilitation
DX: G72.89 Other specified myopathies (principal); K76.6 Portal hypertension; E46 Unspecified protein-calorie malnutrition; I85.10 Secondary esophageal varices without bleeding; R44.3 Hallucinations, unspecified; E72.20 Disorder of urea cycle metabolism, unspecified; F17.210 Nicotine dependence, cigarettes, uncomplicated; G31.2 Degeneration of nervous system due to alcohol; K74.60 Unspecified cirrhosis of liver; K31.89 Other diseases of stomach and duodenum; R41.0 Disorientation, unspecified; R41.9 Unspecified symptoms and signs involving cognitive functions and awareness; F32.9 Major depressive disorder, single episode, unspecified; R53.81 Other malaise; G40.909 Epilepsy, unspecified, not intractable, without status epilepticus; D69.6 Thrombocytopenia, unspecified; K70.11 Alcoholic hepatitis with ascites; K63.5 Polyp of colon; K59.00 Constipation, unspecified; R44.1 Visual hallucinations; Z85.828 Personal history of other malignant neoplasm of skin; Z91.81 History of falling; Z68.23 Body mass index [BMI] 23.0-23.9, adult; Z71.6 Tobacco abuse counseling
CPT/HCPCS: 10112